=== PATIENT | female | born 1960 | race Caucasian/White ===

== ENCOUNTER 2019-03-02 11:24 | Emergency (ER) | payer OTHER ==
[~2019-03-02] VITALS: Ht 165.1 cm; Wt 68.2 kg
[~2019-03-02 11:24] MED LIST: BACLOFEN10 MG PO; CEPHALEXIN500 MG PO; IBUPROFEN400 MG PO; MOTRIN800 MG PO; TRAMADOL HCL50 MG PO; ZESTRIL5 MG PO
[2019-03-02 11:35] VITALS: BP 118/67; Ht 165.1 cm; Wt 68.2 kg
== END 2019-03-02 14:07 | disposition home or self-care (01) ==
LOC: ED 11:24
DX: S39.012A Strain of muscle, fascia and tendon of lower back, initial encounter (principal); G43.909 Migraine, unspecified, not intractable, without status migrainosus; F41.9 Anxiety disorder, unspecified; X50.9XXA Other and unspecified overexertion or strenuous movements or postures, initial encounter; Y93.89 Activity, other specified; Y92.89 Other specified places as the place of occurrence of the external cause; Y99.8 Other external cause status
CPT/HCPCS: J1885